=== PATIENT | male | born 1970 | race Two or more races ===

== ENCOUNTER 2018-04-01 09:28 | Outpatient (CLI) | payer MEDICAID ==
[~2018-04-01] VITALS: Ht 167.6 cm; Wt 85.7 kg
[2018-04-01 09:48] VITALS: BP 152/94
[2018-04-01] MEDS ORDERED: UNOBMED (09:48)
--- NOTE | 2018-04-01 10:03 | GI Initial Consult Note ---
History of Present Illness General Date patient seen: Apr 01, 2018 Time patient seen: 09:59 Referring physician: PRESTON MAYES Reason for Consultation: CONSTIPATION Present Illness HPI 47 year old male presents today with severe constipation. Is currently taking stool softeners with no relief. Denies abdominal pain, N/V/D. Patient is unsure of any unintentional weight loss or changes in dietary habits. No signs of abuse or neglect. Patient is not fall risk. No history of endoscopy / colonoscopy. Home Meds Reported Medications Unable to Obtain Medications (UNABLE TO OBTAIN MEDS) 1 Ea Ea 04/01/18 Med list reviewed/reconciled: Yes Allergies: Coded Allergies: No Known Allergies (Unverified , 04/01/18) Patient History History Provided By: Patient PMH Narrative DM HTN No Past Surgical History Social History: Reports: alcohol use - social >> 3x weekly Review of Systems All Other Systems: negative except mentioned in HPI Physical Exam Vital Signs Date Time Temp Pulse Resp B/P (MAP) Pulse Ox O2 Delivery O2 Flow Rate FiO2 04/01/18 09:48 97.8 80 16 152/94 99 97.8 Sp02 EP Interpretation: reviewed, normal General Appearance: well appearing, no apparent distress, alert Head: normocephalic EENT: PERRL/EOMI, normal ENT inspection Neck: supple Respiratory: normal breath sounds, no respiratory distress Cardiovascular: normal rate Gastrointestinal: normal inspection, non tender, soft, normal bowel sounds, non -distended Rectal: deferred Genitourinary: deferred Musculoskeletal: normal inspection, back normal Neurologic: normal inspection, alert, oriented x3, responsive Psychiatric: normal inspection, judgement/insight normal, memory normal Skin: normal inspection, normal color, no rash, warm/dry, palpation normal, well hydrated Lymphatic: normal inspection, no adenopathy GI: Plan Problems: (1) Colonoscopy planned (2) Constipation Plan Colonoscopy to be scheduled pending prior authorization, will contact patient. - CLD & (Nulytely/Suprep/Movi-Prep) prep instructions given and acknowledged by patient. - NPO @ [place] day prior procedure explained. Rx Linzess 72mcg trial Seen with Dr. Ibarra. Thank you for this patient referral. The patient was seen and examined at bedside and all new and available data was reviewed in the patients chart. I agree with the above findings, impression and plan. (Patient seen earlier today. Signature stamp does not reflect patient encounter time.). - MD Sindi [facility] [place] MACK Apr 01, 2018 10:03
[2018-04-01] MEDS ORDERED: METFORMIN HCL500 M1 ORAL (10:04)
[2018-04-01] MEDS ORDERED: VITAMIN D400 INTLU ORAL (10:04)
== END 2018-04-01 10:00 | disposition home or self-care (01) ==
LOC: PAN 09:28
DX: K59.00 Constipation, unspecified (principal); E11.9 Type 2 diabetes mellitus without complications; I10 Essential (primary) hypertension
CPT/HCPCS: 99201